=== PATIENT | male | born 1950 | race Caucasian/White ===

== ENCOUNTER 2017-03-08 09:56 | Emergency (ER) | payer OTHER, MEDICARE ==
[~2017-03-08] VITALS: Ht 190.5 cm; Wt 117.9 kg
[~2017-03-08 09:56] MED LIST: ALBUTEROL0.09 MG/A2 INH; AMOXICILLIN500 MG PO; ASPIRIN CHILDRE81 MG PO; ATORVASTATIN CA20 M1 PO; AUGMENTIN 875 M1 TAB; AZITHROMYCIN250 MG PO; BICALUTAMIDE50 MG PO; DONEPEZIL HCL10 MG PO; FLOMAX0.4 MG PO; IRON 100 PLUS1 EACH PO; PREDNISONE20 MG PO; TYLENOL650 M1 PO; VICODIN 5/500 505 MG PO; VITAMIN B122500 MC1 PO
[2017-03-08 10:19] LABS: BASO % 0.6 % (0.0-1.0); EOS # 0.1 10*3/uL (0.0-0.4); EOS % 2.8 % (1.0-4.0); HEMATOCRIT 38.2 % (42.0-52.0); LYMPH # 0.7 10*3/uL (1.3-4.4); LYMPH % 18.2 % (27.0-41.0); MEAN CELL VOLUME 95.7 fl (80.0-94.0); MEAN CORPUSCULAR HGB 32.6 pg (27.0-31.0); MEAN PLATELET VOLUME 8.8 fl (9.6-12.3); MONO # 0.4 10*3/uL (0.1-1.0); MONO % 9.7 % (3.0-9.0); NEUT # 2.5 10*3/uL (2.3-7.9); NEUT % 68.4 % (47.0-73.0); PLATELET COUNT AUTOMATED 129 10*3/uL (130-400); RED BLOOD COUNT 3.99 10*6/uL (4.50-5.90); RED CELL DISTRI WIDTH 12.7 % (0-14.5); WHITE BLOOD COUNT 3.6 10*3/uL (4.8-10.8)
[2017-03-08 10:28] LABS: ACT PARTIAL THROMBO TIME 25.4 SECONDS (20.8-31.5)
[2017-03-08 10:35] LABS: ALBUMIN 3.8 gm/dl (3.1-4.5); ALKALINE PHOSPHATASE 54 U/L (45-117); BUN 25 mg/dl (7-24); CHLORIDE 107 mmol/L (98-107); CREATININE 1.16 mg/dL (0.70-1.30); MAGNESIUM 2.5 mg/dL (1.5-2.1); POTASSIUM 3.8 mmol/L (3.5-5.1); SGOT/AST 17 IU/L (3-35); SGPT/ALT 23 U/L (12-78); SODIUM 140 mmol/L (136-145); TOTAL PROTEIN 7.2 gm/dL (6.4-8.2)
[2017-03-08 10:37] LABS: TROPONIN I < 0.015 ng/ml (<0.045)
== END 2017-03-08 13:47 | disposition home or self-care (01) ==
LOC: ED 09:56
PROVIDERS: Student in an Organized Health Care Education/Training Program
DX: Z00.00 Encounter for general adult medical examination without abnormal findings (principal); R07.89 Other chest pain; E78.5 Hyperlipidemia, unspecified; Z90.89 Acquired absence of other organs; Z98.890 Other specified postprocedural states; Z85.46 Personal history of malignant neoplasm of prostate; Z87.891 Personal history of nicotine dependence; Z87.01 Personal history of pneumonia (recurrent); Z79.899 Other long term (current) drug therapy; Z79.82 Long term (current) use of aspirin; Z91.041 Radiographic dye allergy status

== ENCOUNTER 2018-08-08 10:09 | Emergency (ER) | payer OTHER, MEDICARE ==
[~2018-08-08] VITALS: Ht 2019 cm; Wt 109.8 kg
[2018-08-08 10:38] LABS: BASO % 0.6 % (0.0-1.0); EOS # 0.1 10*3/uL (0.0-0.4); EOS % 2.4 % (1.0-4.0); HEMATOCRIT 38.4 % (42.0-52.0); HEMOGLOBIN 12.8 g/dl (14.0-18.0); LYMPH # 0.6 10*3/uL (1.3-4.4); LYMPH % 11.6 % (27.0-41.0); MEAN CELL VOLUME 99.2 fl (80.0-94.0); MEAN CORPUSCULAR HGB 33.1 pg (27.0-31.0); MEAN CORPUSCULAR HGB CONC 33.3 g/dl (33.0-37.0); MEAN PLATELET VOLUME 9.2 fl (9.6-12.3); MONO # 0.5 10*3/uL (0.1-1.0); MONO % 8.8 % (3.0-9.0); NEUT # 4.1 10*3/uL (2.3-7.9); NEUT % 76.4 % (47.0-73.0); PLATELET COUNT AUTOMATED 143 10*3/uL (130-400); RED BLOOD COUNT 3.87 10*6/uL (4.50-5.90); RED CELL DISTRI WIDTH 12.9 % (0-14.5); WHITE BLOOD COUNT 5.4 10*3/uL (4.8-10.8)
[2018-08-08 11:00] LABS: ALBUMIN 3.5 gm/dl (3.1-4.5); ALKALINE PHOSPHATASE 63 U/L (45-117); BUN 25 mg/dl (7-24); CHLORIDE 110 mmol/L (98-107); CREATININE 1.12 mg/dL (0.70-1.30); POTASSIUM 3.5 mmol/L (3.5-5.1); SGOT/AST 23 IU/L (3-35); SGPT/ALT 21 U/L (12-78); SODIUM 144 mmol/L (136-145); TOTAL PROTEIN 7.3 gm/dL (6.4-8.2)
== END 2018-08-08 12:28 | disposition home or self-care (01) ==
LOC: ED 10:09
PROVIDERS: Emergency Medicine
DX: M25.531 Pain in right wrist (principal); M54.2 Cervicalgia; M54.9 Dorsalgia, unspecified; J44.9 Chronic obstructive pulmonary disease, unspecified; E78.5 Hyperlipidemia, unspecified; Z91.041 Radiographic dye allergy status; Z79.899 Other long term (current) drug therapy; Z79.82 Long term (current) use of aspirin; Z87.891 Personal history of nicotine dependence; W19.XXXA Unspecified fall, initial encounter; Y93.89 Activity, other specified; Y92.89 Other specified places as the place of occurrence of the external cause; Y99.8 Other external cause status